=== PATIENT | male | born 1995 | race African-American/Black ===

== ENCOUNTER 2019-05-04 23:12 | Emergency (ER) | payer SELFPAY ==
[~2019-05-04] VITALS: Ht 177.8 cm; Wt 63.5 kg
[2019-05-04 23:12] VITALS: BP 142/63
--- NOTE | 2019-05-04 23:15 | NUR ---
PT BIBA BLS. TAKEN TO BED 1. [place] [employer] AT BEDSIDE
--- NOTE | 2019-05-04 23:16 | NUR ---
PT ARRIVES TO ED WITH [facility], [facility], CARE AMB; PT WAS ON [facility] CALM AT THIS TIME, PT RELEASED FROM [facility], PT PLACED ON HANDCUFF BY [facility] BRYANT AT BEDSIDE.
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
[2019-05-04] MEDS ORDERED: BACITRACIN OINT 500 UNITS/GM PKT TP ONE (23:55)
--- NOTE | 2019-05-05 00:04 | NUR ---
PT BROUGHT TO SHOWER AREA TO RINSE OF PEPPER SPRAY FROM FACE AND NECK AREA PER MD ORDERS. PT GIVEN TOWELS TO WIPE OFF PEPPER SPRAY. SUPERVISOR TOY ASSEMBLY FOLLOWED TO SHOWER AND PT WAS HANDCUFFED TO WHEEL CHAIR BY OFFICER. PT THEN BROUGHT BACK TO BED 1 VIA WHEELCHAIR FOR WOUND CARE.
--- NOTE | 2019-05-05 00:07 | NUR ---
PT WOUNDS ON RIGHT AND LEFT HANDS DRESSED WITH BANDAID AND BACITRACIN, BACITRACIN PLACED ON PT WOUND UNDER LEFT CHIN AREA
[2019-05-05 00:08] VITALS: BP 142/63
--- NOTE | 2019-05-05 00:08 | NUR ---
PATIENT BIB [employer]. PATIENT EXAMINED BY DR. ARRIETA. PATIENT MEDICALLY CLEARED AND RELEASED IN CUSTODY IN STABLE CONDITION. ORIGINAL PRE-BOOK FORM GIVEN TO OFFICER [id number].
== END 2019-05-05 00:08 ==
LOC: MED 23:12
DX: S60.512A Abrasion of left hand, initial encounter (principal); S60.511A Abrasion of right hand, initial encounter; H10.219 Acute toxic conjunctivitis, unspecified eye; Z02.89 Encounter for other administrative examinations; X58.XXXA Exposure to other specified factors, initial encounter; Y93.89 Activity, other specified; Y92.89 Other specified places as the place of occurrence of the external cause; Y99.8 Other external cause status
CPT/HCPCS: 99283